=== PATIENT | female | born 1990 | race Caucasian/White ===

== ENCOUNTER 2016-11-26 11:43 | Emergency (ER) | payer MEDICAID, OTHER ==
[~2016-11-26] VITALS: Ht 154.9 cm; Wt 63.6 kg
[2016-11-26 11:52] VITALS: BP 99/64
--- NOTE | 2016-11-26 11:57 | NUR ---
Noé carr in ED - 11/26/16 at 1158 by MEDLAYLA ORDERED XRAY TO RIGHT FOOT PER ARIN CONTRERAS VERBAL ORDER.
--- NOTE | 2016-11-26 12:52 | NUR ---
Patient returned to ER lobby after completion of XRAY.
--- NOTE | 2016-11-26 13:10 | NUR ---
26/F c/o 2nd, 3rd toe pain x 2 days. Denies injury or trauma. AOX4, ambulatory with steady gait. VSS.
[2016-11-26 13:30] VITALS: BP 109/66
== END 2016-11-26 13:31 | disposition home or self-care (01) ==
LOC: MED 11:43
DX: L03.031 Cellulitis of right toe (principal); M79.671 Pain in right foot; M79.674 Pain in right toe(s); N39.0 Urinary tract infection, site not specified
CPT/HCPCS: 73630; 81002; 81025; 99284